=== PATIENT | male | born 1965 ===

== ENCOUNTER 2020-11-12 11:51 | Day surgery (SDC) | payer BC ==
[~2020-11-12] VITALS: Ht 190.5 cm; Wt 106.4 kg
--- NOTE | 2020-11-12 12:33 | NUR ---
11/12/20 1233 HILLARY HERMAN ONE ATTEMPT IN RH BY JOANN VALVE SECOND ATTEMPT BY JOANN IN RW VALVE ONE SUCCESSFUL BY RN RAC PT TOW
== END 2020-11-12 13:50 | disposition home or self-care (01) ==
LOC: ORSCSDS 11:51
PROVIDERS: Internal Medicine Gastroenterology
PROC: 0DBH8ZX Excision of Cecum, Via Natural or Artificial Opening Endoscopic, Diagnostic (ICD-10-PCS; principal; 2020-11-12 14:15)
DX: Z12.11 Encounter for screening for malignant neoplasm of colon (principal); D12.0 Benign neoplasm of cecum; K57.30 Diverticulosis of large intestine without perforation or abscess without bleeding; K64.1 Second degree hemorrhoids; K21.9 Gastro-esophageal reflux disease without esophagitis; Z83.71 Family history of colonic polyps
CPT/HCPCS: 88305; J2250; J2704; J7120

== ENCOUNTER 2023-09-21 14:27 | Emergency (ER) | payer BC ==
[~2023-09-21] VITALS: Ht 188 cm; Wt 102.1 kg
[2023-09-21 14:36] VITALS: BP 142/90
[2023-09-21] MEDS ORDERED: Ondansetron HCl 2 MG / ML 2ML Vial IV ONE (14:40)
[2023-09-21] MEDS ORDERED: HYDROmorphone HCl/Pf 1MG SYR IV ONE (14:40)
== END 2023-09-21 15:47 | disposition home or self-care (01) ==
LOC: ER 14:27
DX: S42.142A Displaced fracture of glenoid cavity of scapula, left shoulder, initial encounter for closed fracture (principal); W17.81XA Fall down embankment (hill), initial encounter; Z88.2 Allergy status to sulfonamides
CPT/HCPCS: 23650; 73020; 73030; 96374-59; 99283-25; J1170; J2405

== ENCOUNTER 2025-04-03 12:23 | Emergency (ER) | payer OTHER, BC ==
[~2025-04-03] VITALS: Ht 188 cm; Wt 104.3 kg
[2025-04-03 12:23] VITALS: BP 167/94
[2025-04-03] MEDS ORDERED: ASPI325 PO (13:02)
[2025-04-03] MEDS ORDERED: Ketorolac Tromethamine 30mg Vial IV ONE (13:20)
[2025-04-03] MEDS ORDERED: Ondansetron HCl 2 MG / ML 2ML Vial IV ONE (14:05)
[2025-04-03] MEDS ORDERED: Morphine Sulfate 4 MG/1 ML Injection IV ONE (14:05)
[2025-04-03] MEDS ORDERED: IBUP800 PO (16:47)
[2025-04-03] MEDS ORDERED: HYDROCODONE-AC1 EA10 PO (16:47)
[2025-04-04] MEDS ORDERED: Norco 5-325 Ta1 EACH PO (08:34)
== END 2025-04-03 17:23 | disposition home or self-care (01) ==
LOC: ER 12:23
DX: S12.120A Other displaced dens fracture, initial encounter for closed fracture (principal); S00.03XA Contusion of scalp, initial encounter; S20.211A Contusion of right front wall of thorax, initial encounter; Z88.2 Allergy status to sulfonamides; V28.49XA Other motorcycle driver injured in noncollision transport accident in traffic accident, initial encounter
CPT/HCPCS: 70450; 71045; 72125; 74177; 96374-59; 96375; 99285-25; J1885; J2270; J2405; Q9967

== ENCOUNTER 2025-04-04 08:02 | Emergency (ER) | payer OTHER, BC ==
[~2025-04-04] VITALS: Ht 188 cm; Wt 104.3 kg
[~2025-04-04 08:02] MED LIST: ASPI325 PO; HYDROCODONE-AC1 EA10 PO; IBUP800 PO
[2025-04-04] MEDS ORDERED: Norco 5-325 Ta1 EACH PO (08:34)
[2025-04-04 08:43] VITALS: BP 133/78
== END 2025-04-04 09:35 | disposition home or self-care (01) ==
LOC: ER 08:02
DX: S12.110D Anterior displaced Type II dens fracture, subsequent encounter for fracture with routine healing (principal); X58.XXXD Exposure to other specified factors, subsequent encounter; Z79.82 Long term (current) use of aspirin; Z88.2 Allergy status to sulfonamides; Z79.899 Other long term (current) drug therapy
CPT/HCPCS: 99282